=== PATIENT | female | born 1990 | race African-American/Black ===

== ENCOUNTER 2017-12-07 07:26 | Emergency (ER) | payer MEDICAID ==
[~2017-12-07 07:26] MED LIST: LISI-360 PO; ONDA4TAB7 PO; PRENCAP6 PO
[2017-12-07 07:27] VITALS: BP 187/89; PULSE 83; RESP 16; TEMP 98.3; O2SAT 100
[2017-12-07] MEDS ORDERED: LABE100T2 PO (07:41)
[2017-12-07] MEDS ORDERED: AMLO2.5T PO (07:41)
[2017-12-07] MEDS ORDERED: HYDR25TA5 PO (07:41)
--- NOTE | 2017-12-07 08:02 | PD ---
HPI Chief Complaint: Cold / Flu Symptoms Time Seen by Provider: 07:44 Travel History International Travel<30 days: No Contact w/Intl Traveler<30days: No Traveled to known affect area: No History of Present Illness HPI Patient is a 27-year-old female presents emergency department with runny nose cough congestion fever and body aches as well as some nausea and some intermittent leg weakness for the past 24-36 hours. Her young child was sick after coming home from daycare a few days ago with similar symptoms. She is concerned that she might have the flu. Denies any chest pain shortness of breath abdominal pain or diarrhea. Denies possibility of , denies any vaginal bleeding or vaginal discharge. Symptoms for the past 24-36 hours, gradually worsening, associated sinus symptoms as above, context as above PFSH Past Medical History Autoimmune Disease: No Blood Disorders: No Anxiety: No Depression: No Cardiovascular Problems: Yes (HTN) Diminished Hearing: No Gastrointestinal Disorders: Yes GERD: Yes Genitourinary: No Hypertension: Yes Musculoskeletal: No Neurologic: No Psychiatric: No Respiratory: No Immunizations Current: Yes Tetanus Vaccination: < 5 Years Influenza Vaccination: No ?: Not LMP: 11/22/2017 : 1 Para: 1 Miscarriage: 0 : 0 Past Surgical History Section: Yes Cholecystectomy: Yes (2004) Other Surgery: No Social History Alcohol Use: Yes () Tobacco Use: No Substance Use: No Allergies-Medications (Allergen,Severity, Reaction): Coded Allergies: lisinopril (Unverified Allergy, Unknown, 12/07/17) Reported Meds & Prescriptions Reported Meds & Active Scripts Active Zofran (Ondansetron HCl) 4 Mg Tab 4 Mg PO Q6HR PRN Tamiflu (Oseltamivir Phosphate) 75 Mg Cap 75 Mg PO BID 5 Days Reported Amlodipine (Amlodipine Besylate) 2.5 Mg Tab 2.5 Mg PO DAILY Hydrochlorothiazide 25 Mg Tab 25 Mg PO DAILY Labetalol (Labetalol HCl) 100 Mg Tab 100 Mg PO TID Review of Systems Except as stated in HPI: all other systems reviewed are Neg Physical Exam Narrative GENERAL: WD/WN in nad SKIN: Warm and dry. HEAD: Atraumatic. Normocephalic. EYES: Pupils equal and round. No scleral icterus. No injection or drainage. ENT: No nasal bleeding or discharge. Mucous membranes pink and moist. TM's clear bilat, Oropharynx with minimal erythema, no swelling, uvula midline. NECK: Trachea midline. No JVD. CARDIOVASCULAR: Regular rate and rhythm. RESPIRATORY: No accessory muscle use. Clear to auscultation. Breath sounds equal bilaterally. GASTROINTESTINAL: Abdomen soft, non-tender, nondistended. Hepatic and splenic margins not palpable. MUSCULOSKELETAL: Extremities without clubbing, cyanosis, or edema. No obvious deformities. NEUROLOGICAL: Awake and alert. No obvious cranial nerve deficits. Motor grossly within normal limits. Five out of 5 muscle strength in the arms and legs. Normal speech. PSYCHIATRIC: Appropriate mood and affect; insight and judgment normal. Data Data Last Documented VS Vital Signs Date Time Temp Pulse Resp B/P (MAP) Pulse Ox O2 Delivery O2 Flow Rate FiO2 12/07/17 09:14 12/07/17 07:35 Room Air 12/07/17 07:27 98.3 83 16 100 Orders Orders Ed Urine Pregnancytest Poc (12/07/17 07:44) Ua Includes Microscopic (12/07/17 07:44) Ondansetron Odt (Zofran Odt) (12/07/17 08:45) Ed Discharge Order (12/07/17 08:45) Labs Laboratory Tests Test 12/07/17 08:15 Urine Color YELLOW Urine Turbidity CLEAR Urine pH 7.0 Urine Specific [place] 1.024 Urine Protein TRACE mg/dL Urine Glucose (UA) NEG mg/dL Urine Ketones NEG mg/dL Urine Occult Blood NEG Urine Nitrite NEG Urine Bilirubin NEG Urine Urobilinogen LESS THAN 2.0 MG/DL Urine Leukocyte Esterase SMALL Urine RBC 1 /hpf Urine Squamous Epithelial Cells 4 /hpf Urine Mucus FEW /lpf MDM Medical Decision Making Medical Screen Exam Complete: Yes Emergency Medical Condition: Yes Differential Diagnosis Influenza, pneumonia, URI. Narrative Course Patient sign symptoms consistent with uncomplicated influenza. Discussed symptomatic management had Tamiflu and discuss returning to criteria. She is stable for discharge. Diagnosis Primary Impression: Influenza Med/Other Pt SpecificInfo: Prescription(s) given Scripts Ondansetron (Zofran) 4 Mg Tab 4 MG PO Q6HR Y for NAUSEA OR VOMITING, #20 TAB 0 Refills Prov: Willy Dubois MD 12/07/17 Oseltamivir (Tamiflu) 75 Mg Cap 75 MG PO BID for Mgmt Viral Infection for 5 Days, #10 CAP 0 Refills Prov: Willy Dubois MD 12/07/17 Disposition: 01 DISCHARGE HOME Condition: Stable Willy Dubois MD Dec 07, 2017 08:02
[2017-12-07 08:36] LABS: BILIRUBIN, URINE NEG (NEG); BLOOD, URINE NEG (NEG); GLUCOSE,URINE NEG (NEG); KETONE, URINE NEG (NEG); MUCUS URINE FEW /lpf (OCC); NITRITE,URINE NEG (NEG); SQUAMOUS EPITHELIAL CELL URINE 4 /hpf (0-5); URINE COLOR YELLOW (YELLW/STRAW); URINE LEUKOCYTE ESTERASE SMALL (NEG)
[2017-12-07] MEDS ORDERED: OSEL75 PO (08:45)
[2017-12-07] MEDS ORDERED: ZOFR4TAB PO (08:45)
[2017-12-07] MEDS ORDERED: ONDANSETRON ODT 4 MG TAB PO ONE (08:45)
== END 2017-12-07 09:18 | disposition home or self-care (01) ==
LOC: NEPC 07:26
DX: J11.1 Influenza due to unidentified influenza virus with other respiratory manifestations (principal); I10 Essential (primary) hypertension; K21.9 Gastro-esophageal reflux disease without esophagitis; Z88.8 Allergy status to other drugs, medicaments and biological substances; Z79.899 Other long term (current) drug therapy
CPT/HCPCS: 81001; 84703; 99283

== ENCOUNTER 2018-03-08 12:21 | Emergency (ER) | payer SELFPAY ==
[~2018-03-08] VITALS: Ht 167.6 cm; Wt 136.2 kg
[~2018-03-08 12:21] MED LIST changes: +AMLO2.5T PO; +HYDR25TA5 PO; +LABE100T2 PO; -LISI-360 PO; -ONDA4TAB7 PO; +OSEL75 PO; -PRENCAP6 PO; +ZOFR4TAB PO
[2018-03-08 12:27] VITALS: BP 156/85; PULSE 89; RESP 18; TEMP 99; O2SAT 97
[2018-03-08] MEDS ORDERED: LORA1CHW2 CHEW (13:20)
--- NOTE | 2018-03-08 13:46 | PD ---
HPI Chief Complaint: Cold / Flu Symptoms Time Seen by Provider: 13:20 Travel History International Travel<30 days: No Contact w/Intl Traveler<30days: No Traveled to known affect area: No History of Present Illness HPI 27 year-old female presents to the emergency room for evaluation of cold symptoms that started yesterday. Patient reports a fever of 102 yesterday. Symptoms include sore throat, left-sided ear pain, nonproductive cough, nasal congestion, and sinus headache. She has been taking [id number] medications and Tylenol/Motrin with moderate relief in symptoms. She denies any chronic medical conditions or daily medications. Last menstrual cycle was 2 weeks ago. She does deny any body aches, nausea, or vomiting. History Past Medical Histgory LMP: 02/15/18 Social History Alcohol Use: Yes (OCC) Tobacco Use: No Allergies-Medications (Allergen,Severity, Reaction): Coded Allergies: lisinopril (Unverified Allergy, Unknown, 03/08/18) Reported Meds & Prescriptions Reported Meds & Active Scripts Active Reported Claritin (Loratadine) 5 Mg Chew 5 Mg CHEW DAILY Amlodipine (Amlodipine Besylate) 2.5 Mg Tab 2.5 Mg PO DAILY Hydrochlorothiazide 25 Mg Tab 25 Mg PO DAILY Labetalol (Labetalol HCl) 100 Mg Tab 100 Mg PO TID Review of Systems Except as stated in HPI: all other systems reviewed are Neg Physical Exam Narrative GENERAL: Well-nourished, well-developed female no acute distress. Afebrile. Ambulatory. SKIN: Focused skin assessment warm/dry. HEAD: Normocephalic. EYES: No scleral icterus. No injection or drainage. ENT: Mucosa pink and moist. No erythema or exudates. No uvular edema. No uvular , palatal, or tonsillar deviation. Airway patent. Nasal turbinates appear normal without nasal blood, purulent drainage or septal hematoma. EARS: Bilateral pinnae and external canals appear within normal limits. Bilateral tympanic membranes without erythema, dullness or perforation. NECK: Supple, trachea midline. No JVD or lymphadenopathy. CARDIOVASCULAR: Regular rate and rhythm without murmurs, gallops, or rubs. RESPIRATORY: Breath sounds equal bilaterally. No accessory muscle use. No crackles, rales, wheezes, rhonchi. Data Data Last Documented VS Vital Signs Date Time Temp Pulse Resp B/P (MAP) Pulse Ox O2 Delivery O2 Flow Rate FiO2 03/08/18 12:27 99.0 89 18 156/85 (108) 97 MDM Medical Screen Exam Complete: Yes Emergency Medical Condition: No Differential Diagnosis Upper respiratory infection Narrative Course 27-year-old female presents to the emergency room for evaluation of cold symptoms that started yesterday. Patient is afebrile well-appearing in the emergency room. No evidence of bacterial infection. This is viral URI. No emergent or urgent medical conditions at this time. A medical screening exam was performed: At the time of evaluation the presenting medical condition was determined not to be of an emergent nature. The patient was given the option of receiving additional care, but declined. Patient was given options for additional community resources from which to obtain care. The Patient Has Been advised to seek medical attention for their presenting complaint. The patient has been advised to return to the ER at any time if an emergent condition develops. Primary Impression: Encounter for medical screening examination Disposition: 01 DISCHARGE HOME Condition: Stable Octavia Patterson March 08, 2018 13:46
== END 2018-03-08 13:49 | disposition left against medical advice (07) ==
LOC: NEPK 12:21
DX: R50.9 Fever, unspecified (principal)
CPT/HCPCS: 99281